=== PATIENT | female | born 1955 | race Caucasian/White ===

== ENCOUNTER 2018-05-10 09:28 | Day surgery (SDC) | payer BC ==
[~2018-05-10] VITALS: Ht 162.6 cm; Wt 106.6 kg
[~2018-05-10 09:28] MED LIST: ATOR1TAB21 PO; BYDU1INJ SC; CLON-412 PO; DIAZ2TAB PO; HUMA100I3 SC; IRBE150T12 PO; LANTINJ4 SC; LIDOCAINE 2% INJ 100 MG/5 ML SDV (FOR ANES.) As Ordered ONE; LIDOCAINE 3.5 % 1ML OPHTH TOPICAL GEL OU ONE; METF10004 PO; MIDAZOLAM INJ 2 MG/2 ML VIAL (J2250) As Ordered ONE; OMEP20CA3 PO; PIOG1TAB36 PO; PRED1TABL PO; PROPOFOL 200 MG/20 ML VIAL As Ordered ONE; ZOLO50TA PO; fentaNYL 100 MCG/2 ML INJECTION (J3010) As Ordered ONE
[2018-05-10] MEDS ORDERED: TETRACAINE 0.5% OPHTH SOLN 4ML As Ordered ONE (10:49)
[2018-05-10] MEDS ORDERED: POVIDONE-IODINE 5% OPHTH PREP SOL 30ML As Ordered ONE (10:49)
[2018-05-10] MEDS ORDERED: LIDOCAINE 2% W/EPIN INJ 20ML **PRES FREE As Ordered ONE (10:49)
[2018-05-10] MEDS ORDERED: ERYTHROMYCIN OPHTH OINT As Ordered ONE (10:49)
[2018-05-10 14:02] VITALS: BP 170/82
--- NOTE | 2018-05-14 08:28 | RO ---
DATE OF PROCEDURE: 05/10/2018 PREPROCEDURE DIAGNOSIS: Visually significant dermatochalasis both eyes. POSTPROCEDURE DIAGNOSIS: Visually significant dermatochalasis both eyes. PROCEDURE: Bilateral upper lid blepharoplasty. SURGEON: Shun White DO, SIMA COMMISSIONING ENGINEER: Diamante Pimentel, third year medical student. ANESTHESIA: Local 2% lidocaine with epinephrine and sedation and monitoring by anesthesia. ESTIMATED BLOOD LOSS: 30 mL. There was copious bleeding with this patient. She is a diabetic and is on oral prednisone chronically. INDICATION: Visually significant dermatochalasis both eyes. SPECIMENS SENT TO PATHOLOGY: COMPLICATIONS: None. PROCEDURE IN DETAIL: After obtaining informed consent, the patient was taken to the operating room where a time out was performed confirming we had the correct patient and operative site. The patient was prepped and draped in a sterile fashion. The upper lids were marked for an upper lid blepharoplasty with temporal hooding. The upper lids were injected with 2% lidocaine with epinephrine for anesthesia and hemostasis. After waiting 5 minutes to allow the anesthetic to set, Bovie cautery was used to excise the desired amount of upper lid skin and orbicularis muscle. The lids were reapproximated with a running #6-0 Nylon suture, however this patient did have heavy bleeding and so #5-0 Vicryls were placed to help ligate the bleeding arterials in the lid. The blepharoplasty was performed in both eyes and the patient was administered antibiotic ointment and cold packs and returned to recovery area in excellent condition. She will followup in the office.
== END 2018-05-10 14:02 | disposition home or self-care (01) ==
LOC: M SDC 09:28
PROVIDERS: ATTEND Ophthalmology
DX: H02.831 Dermatochalasis of right upper eyelid (principal); H02.834 Dermatochalasis of left upper eyelid; E11.9 Type 2 diabetes mellitus without complications; I10 Essential (primary) hypertension; E78.5 Hyperlipidemia, unspecified; K21.9 Gastro-esophageal reflux disease without esophagitis; Z88.0 Allergy status to penicillin; G47.30 Sleep apnea, unspecified; Z79.84 Long term (current) use of oral hypoglycemic drugs; Z79.4 Long term (current) use of insulin; Z79.899 Other long term (current) drug therapy
CPT/HCPCS: 15823; 88302; 88305; J2250; J3010

== ENCOUNTER → 2019-08-17 | Outpatient (CLI) | payer BC ==
[~2019-08-17] MED LIST changes: -IRBE150T12 PO; +IRBE150T7 PO; -LIDOCAINE 2% INJ 100 MG/5 ML SDV (FOR ANES.) As Ordered ONE; -LIDOCAINE 3.5 % 1ML OPHTH TOPICAL GEL OU ONE; -MIDAZOLAM INJ 2 MG/2 ML VIAL (J2250) As Ordered ONE; +OMEP1CAP73 PO; -OMEP20CA3 PO; -PROPOFOL 200 MG/20 ML VIAL As Ordered ONE; -fentaNYL 100 MCG/2 ML INJECTION (J3010) As Ordered ONE
--- NOTE | 2019-08-28 10:29 | SLEEPCENT ---
DATE OF PROCEDURE: 08/17/2019 ORDERED BY: Dr. Rios Nocturnal polysomnography was performed for the re-titration of pressure therapy in this patient with obstructive sleep apnea syndrome. Apnea-hypopnea index 5.2. For testing the patient was fit with a [employer]Med Quattro full-face mask of small size; 12 cm of water pressure were applied to the circuit and the lights were extinguished. 7 hours and 49 minutes of date were reviewed. There were 278.5 minutes of sleep identified. Sleep latency was prolonged at 15.5 minutes. Rapid eye movement (REM) latency was prolonged and 388.5 minutes. Sleep architecture showed poor progression early in the study but improvement was seen on optimal pressure therapy. Overall sleep efficiency was 60%. The patient's electrocardiogram showed a sinus rhythm with average heart rate of 62 beats per minute. Electroencephalogram (EEG) showed normal waveforms for awake and sleep. Respiratory events were fully palliated with CPAP at a pressure of +14, and remaining measures of sleep physiology were normal. IMPRESSION: Obstructive sleep apnea syndrome (G47.33). RECOMMENDATIONS: Nightly use of pressure therapy 14 cm of water.
== END ==
LOC: M SLEEP 20:00
PROVIDERS: ATTEND Internal Medicine Pulmonary Disease
DX: G47.33 Obstructive sleep apnea (adult) (pediatric) (principal)

== ENCOUNTER → 2021-09-21 | Outpatient (CLI) | payer BC ==
[~2021-09-21] MED LIST changes: +ISOVUE-300 61% 50ML VIAL As Ordered ONE; +LIDOCAINE 1% MDV 20ML VIAL As Ordered ONE; +TRIAMCINOLONE ACETONIDE SUSP 40 MG/ML VIAL (J3301) As Ordered ONE
== END ==
LOC: M RADPRO 15:21
PROVIDERS: ATTEND Orthopaedic Surgery
DX: M16.0 Bilateral primary osteoarthritis of hip (principal)
CPT/HCPCS: 20610; 76000; J3301; Q9967

== ENCOUNTER → 2022-05-18 | Outpatient (CLI) | payer BC ==
[~2022-05-18] MED LIST changes: +ISOVUE-300 61% 100ML VIAL ONE; -ISOVUE-300 61% 50ML VIAL As Ordered ONE; -LIDOCAINE 1% MDV 20ML VIAL As Ordered ONE; +LIDOCAINE 1% MDV 20ML VIAL ONE; -TRIAMCINOLONE ACETONIDE SUSP 40 MG/ML VIAL (J3301) As Ordered ONE; +TRIAMCINOLONE ACETONIDE SUSP 40MG/ML 1ML VIAL ONE
== END ==
LOC: M PLAIMG 15:34
PROVIDERS: ATTEND Orthopaedic Surgery
DX: M16.12 Unilateral primary osteoarthritis, left hip (principal)
CPT/HCPCS: 20610; 76000; J3301